=== PATIENT | female | born 2000 | race Caucasian/White ===

== ENCOUNTER 2022-01-12 14:05 | Emergency (ER) | payer OTHER ==
[~2022-01-12] VITALS: Ht 162.6 cm; Wt 99.8 kg
[2022-01-12 14:48] VITALS: BP 123/66
[2022-01-12] MEDS: KETOROLAC 30 MG/ML VIAL IM ONE (15:26)
[2022-01-12] MEDS ORDERED: NAPR-54 PO (15:29)
--- NOTE | 2022-01-12 16:24 | NUR ---
PLACED PT'S RIGHT WRIST/THUMB IN A PRE-FABRICATED THUMB SPICA. CMS ASSESSED BEFORE AND AFTER. ERMD NOTIFED
[2022-01-12 16:34] VITALS: BP 120/60
--- NOTE | 2022-01-12 16:34 | NUR ---
Patient discharged with v/s stable. Written and verbal after care instructions given DE QUERVAINS TENOSYNOVITIS and explained. Patient alert, oriented and verbalized understanding of instructions. Ambulatory with steady gait. All questions addressed prior to discharge. ID band removed. Patient advised to follow up with PMD. Rx of NAPROXEN given. Patient educated on indication of medication including possible reaction and side effects. Opportunity to ask questions provided and answered.
== END 2022-01-12 16:34 | disposition home or self-care (01) ==
LOC: MED 14:05
DX: M77.8 Other enthesopathies, not elsewhere classified (principal); Z79.1 Long term (current) use of non-steroidal anti-inflammatories (NSAID)
CPT/HCPCS: 29125; 73110; 81002; 81025; 96372; 99283; J1885

== ENCOUNTER 2022-02-03 11:10 | Emergency (ER) | payer OTHER ==
[~2022-02-03] VITALS: Ht 162.6 cm; Wt 93.4 kg
[~2022-02-03 11:10] MED LIST: NAPR-54 PO
[2022-02-03 11:26] VITALS: BP 135/73
--- NOTE | 2022-02-03 11:29 | NUR ---
PT AMB TO BED 3.
--- NOTE | 2022-02-03 11:30 | NUR ---
WALKED IN C/O B/L WRIST PAIN CHRONIC BUT GOT WORSE TODAY. DENIES FALL OR INJURY BUT STATES CHRONIC PAIN FROM CARRYING BABY. AAOX3, AMBULATORY, VITALS STABLE, RANGE OF MOTION FOR B/L WRIST INTACT.
[2022-02-03] MEDS ORDERED: IBUPROFEN 600 MG TAB PO ONE (12:15)
[2022-02-03] MEDS ORDERED: ACET-1195 PO (12:24)
[2022-02-03] MEDS ORDERED: HYDR28CR38 TP (12:24)
[2022-02-03 12:50] VITALS: BP 133/69
--- NOTE | 2022-02-03 13:01 | NUR ---
Patient discharged with v/s stable. Written and verbal after care instructions given and explained. Patient alert, oriented and verbalized understanding of instructions. Ambulatory with steady gait. All questions addressed prior to discharge. ID band removed. Patient advised to follow up with PMD. Rx of CORTIZONE given. Patient educated on indication of medication including possible reaction and side effects. Opportunity to ask questions provided and answered.
== END 2022-02-03 13:01 | disposition home or self-care (01) ==
LOC: MED 11:10
DX: L30.9 Dermatitis, unspecified (principal); Z79.899 Other long term (current) drug therapy; Z79.1 Long term (current) use of non-steroidal anti-inflammatories (NSAID)
CPT/HCPCS: 99282

== ENCOUNTER 2023-01-25 10:15 | Emergency (ER) | payer OTHER ==
[~2023-01-25] VITALS: Ht 162.6 cm; Wt 84.4 kg
[~2023-01-25 10:15] MED LIST changes: +ACET-1195 PO; +HYDR28CR38 TP
[2023-01-25 10:19] VITALS: BP 125/82
[2023-01-25 11:01] LABS: BASOPHILS % (AUTO) 0.5 % (0.0-2.0); EOSINOPHILS # (AUTO) 0.1 K/uL (0-0.4); EOSINOPHILS % (AUTO) 0.6 % (0.0-4.0); HEMATOCRIT 38.4 % (36-48); HEMOGLOBIN 12.6 g/dL (12.0-16.0); LYMPHOCYTES # (AUTO) 2.5 K/uL (2.5-16.5); LYMPHOCYTES % (AUTO) 25.2 % (20.5-51.1); MEAN CORPUSCULAR HEMOGLOBIN 29 pg (27-31); MEAN CORPUSCULAR HGB CONC 33 g/dL (33-37); MONOCYTES # (AUTO) 0.8 K/uL (0.8-1.0); MONOCYTES % (AUTO) 8.5 % (1.7-9.3); NEUTROPHILS # (AUTO) 6.4 K/uL (1.8-7.7); NEUTROPHILS % (AUTO) 65.2 % (42.2-75.2); PLATELET COUNT (AUTO) 322 K/uL (140-450); RED BLOOD CELL COUNT(AUTO) 4.37 MIL/uL (4.20-5.40); RED CELL DISTRIBUTION WIDTH 16.9 % (11.6-13.7); WHITE BLOOD COUNT (AUTO) 9.8 K/uL (4.5-11.0)
--- NOTE | 2023-01-25 11:23 | NUR ---
Pt bibs for intermittent nausea x 2 weeks. Pt does not always vomit, but is unable to eat do to nausea. Pt is a/o x4, vss, no ss of acute distress, breathing equal and unlabored, speech clear, breathing equal and unlabored. Sig other at bedside. Pt states she is , unsure of how long. States she took a preg test 2 weeks ago which was positive and the may have started at days before.
[2023-01-25 11:29] LABS: ALBUMIN 3.5 g/dL (3.4-5.0); ANION GAP 11.3 (8-16); CREATININE 0.5 mg/dL (0.6-1.3); POTASSIUM 3.3 mmol/L (3.5-5.1); TOTAL BILIRUBIN 0.2 mg/dL (0.0-1.0)
[2023-01-25 12:13] LABS: APPEARANCE,URINE CLEAR (CLEAR); BILIRUBIN,URINE NEGATIVE (NEGATIVE); BLOOD, URINE NEGATIVE (NEGATIVE); COLOR,URINE YELLOW (YELLOW); LEUKOCYTE ESTERASE ,URINE NEGATIVE (NEGATIVE); NITRITE, URINE NEGATIVE (NEGATIVE); PH,URINE 7.5 (5.0-9.0); UGLUCOSE NEGATIVE (NEGATIVE)
[2023-01-25 12:15] VITALS: BP 128/78
--- NOTE | 2023-01-25 12:25 | NUR ---
Pt eloped without speaking with me or staff. Pt had asked for a timeframe and update. Pt was updated on plan of care and stated she would wait, but was no longer in the ED. I walked through the hospital in and out. Pt was no where to be found.
--- NOTE | 2023-01-25 12:27 | NUR ---
notified of pts absence.
--- NOTE | 2023-01-25 12:46 | NUR ---
gave okay for pt to be removed from tracker after speaking with her on phone.
== END 2023-01-25 12:25 | disposition left against medical advice (07) ==
LOC: MED 10:15
DX: O21.8 Other vomiting complicating pregnancy (principal); Z79.899 Other long term (current) drug therapy; Z98.890 Other specified postprocedural states
CPT/HCPCS: 36415; 80053; 81003; 83690; 84702; 84703; 85025; 99283

== ENCOUNTER 2023-07-24 18:21 | Observation (INO) | payer MEDICAID, OTHER ==
[~2023-07-24] VITALS: Ht 167.6 cm; Wt 102.1 kg
[2023-07-24] MEDS ORDERED: PRETAB PO (18:40)
[2023-07-24] MEDS ORDERED: ACETAMINOPHEN 325 MG TAB PO ONE (18:45)
[2023-07-24] MEDS ORDERED: ACETAMINOPHEN EXTRA STRENGTH 500 MG TAB ONE (18:55)
[2023-07-24] MEDS ORDERED: ONDANSETRON 4 MG TAB PO ONE (20:45)
[2023-07-24] MEDS ORDERED: ONDANSETRON 4 MG TAB ONE (20:46)
[2023-07-24] MEDS ORDERED: FAMOTIDINE 20 MG TAB PO SCH (21:00)
== END 2023-07-25 01:55 | disposition left against medical advice (07) ==
LOC: MLD 18:21
PROVIDERS: ADMIT Obstetrics & Gynecology; ATTEND Obstetrics & Gynecology
DX: O26.893 Other specified pregnancy related conditions, third trimester (principal); R51.9 Headache, unspecified; R42 Dizziness and giddiness; O21.2 Late vomiting of pregnancy; Z3A.33 33 weeks gestation of pregnancy
CPT/HCPCS: 36415; 82731; G0378; Q0162; 81000

== ENCOUNTER 2024-03-24 12:04 | Emergency (ER) | payer MEDICAID ==
[~2024-03-24] VITALS: Ht 162.6 cm; Wt 102.6 kg
[~2024-03-24 12:04] MED LIST changes: -ACET-1195 PO; -HYDR28CR38 TP; -NAPR-54 PO; +PRETAB PO
[2024-03-24 12:10] VITALS: BP 124/66; PULSE 66; RESP 18; TEMP 97.7; O2SAT 100
[2024-03-24 12:46] LABS: APPEARANCE,URINE CLEAR (CLEAR); BILIRUBIN,URINE NEGATIVE (NEGATIVE); BLOOD, URINE NEGATIVE (NEGATIVE); COLOR,URINE YELLOW (YELLOW); LEUKOCYTE ESTERASE ,URINE NEGATIVE (NEGATIVE); NITRITE, URINE NEGATIVE (NEGATIVE); PROTEIN,URINE NEGATIVE (NEGATIVE); UGLUCOSE NEGATIVE (NEGATIVE); UROBILINOGEN,URINE 0.2 EU/dL (0.2 - 1)
[2024-03-24] MEDS ORDERED: DOXY1TCP PO (12:50)
[2024-03-24] MEDS ORDERED: FAMO-90 PO (12:50)
[2024-03-24 13:07] VITALS: BP 124/66; PULSE 66; RESP 18; TEMP 97.7; O2SAT 100
== END 2024-03-24 13:03 | disposition home or self-care (01) ==
LOC: MED 12:04
DX: O99.891 Other specified diseases and conditions complicating pregnancy (principal); R35.0 Frequency of micturition; O21.9 Vomiting of pregnancy, unspecified; Z3A.00 Weeks of gestation of pregnancy not specified; Z79.899 Other long term (current) drug therapy
CPT/HCPCS: 81003; 81025; 99283